=== PATIENT | female | born 1960 | race Caucasian/White ===

== ENCOUNTER 2024-09-08 04:28 | Day surgery (SDC) | payer OTHER ==
[2024-09-04 14:58] VITALS: BMI 36.4
[2024-09-08] MEDS ORDERED: DEXAMETHASONE SOD PHOSPHATE 4 MG/1 ML VIAL ONE (07:32)
[2024-09-08] MEDS ORDERED: LIDOCAINE HCL/PF 2% SDV 5ML VIAL ONE (07:32)
[2024-09-08] MEDS ORDERED: ONDANSETRON 4 MG/2 ML VIAL ONE ×2 (07:32→13:16)
[2024-09-08] MEDS ORDERED: KETOROLAC TROMETHAMINE 30 MG/1 ML VIAL ONE (07:32)
[2024-09-08] MEDS ORDERED: ROCURONIUM BROMIDE 50 MG/5 ML SYRINGE ONE (07:37)
[2024-09-08] MEDS ORDERED: MIDAZOLAM HCL 2 MG/2 ML SINGLE DOSE VIAL ONE (07:40)
[2024-09-08] MEDS ORDERED: PROPOFOL 40 ML ONE (07:41)
[2024-09-08] MEDS ORDERED: ACETAMINOPHEN INJECTION 100 ML ONE (08:05)
[2024-09-08] MEDS ORDERED: HEPARIN NA (PORCINE) 5,000 UNITS/ML 1ML VIAL ONE (08:15)
[2024-09-08] MEDS ORDERED: cefOXitin SODIUM 2 GM VIAL (RESTRICTED TO ID) IVPB ONE (08:15)
[2024-09-08] MEDS ORDERED: BUPIVACAINE HCL/PF 0.25% (2.5MG/ML) 10 ML VIAL ONE (08:15)
[2024-09-08] MEDS: cefOXitin SODIUM 2 GM VIAL (RESTRICTED TO ID) IVPB ONE (10:18)
[2024-09-08] MEDS: BUPIVACAINE HCL/PF 0.25% (2.5MG/ML) 10 ML VIAL IJ ONE (10:28)
[2024-09-08] MEDS ORDERED: NEOSTIGMINE METHYLSULFATE 0.5 MG/1 ML - 10 ML MDV ONE (10:45)
[2024-09-08] MEDS ORDERED: GLYCOPYRROLATE 0.2 MG/1 ML VIAL ONE (10:45)
[2024-09-08] MEDS ORDERED: oxyCODONE HCL 5 MG TABLET PO PRN (11:19)
[2024-09-08] MEDS ORDERED: PROMETHAZINE HCL 25 MG/1 ML VIAL IVPB PRN (11:19)
[2024-09-08] MEDS: ONDANSETRON 4 MG/2 ML VIAL IVPUSH PRN (13:22)
[2024-09-08] MEDS: ACETAMINOPHEN 1000 MG/100 ML BAG IVPB ONE (13:23)
[2024-09-08] MEDS: LACTATED RINGERS SOLUTION 1,000 ML IV SCH (13:47)
[2024-09-08 16:10] VITALS: RESP 16
[2024-09-08] MEDS ORDERED: oxyCODONE HCL 5 MG TABLET ONE (17:19)
[2024-09-08] MEDS: oxyCODONE HCL 5 MG TABLET PO PRN (17:20)
[2024-09-08 17:24] VITALS: BP 130/75; PULSE 82; TEMP 97.8
== END 2024-09-08 18:22 | disposition home or self-care (01) ==
LOC: JASU-SURG 04:28
PROVIDERS: ATTEND Surgery
PROC: 0FT44ZZ Resection of Gallbladder, Percutaneous Endoscopic Approach (ICD-10-PCS; principal; 2024-09-08 12:30)
PROC: 0DJ08ZZ Inspection of Upper Intestinal Tract, Via Natural or Artificial Opening Endoscopic (ICD-10-PCS; 2024-09-08 12:30)
DX: K80.20 Calculus of gallbladder without cholecystitis without obstruction (principal)
CPT/HCPCS: 82962; 86850; 86900; 86901; 88304-TC; 94760; J0131; J1644

== ENCOUNTER 2024-09-19 14:40 | Inpatient (IN) | payer OTHER ==
[2024-09-19] MEDS ORDERED: ACETAMINOPHEN INJECTION 100 ML ONE (15:29)
[2024-09-19] MEDS ORDERED: ONDANSETRON 4 MG/2 ML VIAL ONE ×2 (15:30→23:59)
[2024-09-19] MEDS ORDERED: FAMOTIDINE 20 MG/50 ML IVPB 20 MG/50 ML MG IVPB ONE (15:30)
[2024-09-19] MEDS: ONDANSETRON 4 MG/2 ML VIAL IVPUSH ONE (15:57)
[2024-09-19] MEDS: ACETAMINOPHEN 1000 MG/100 ML BAG IVPB ONE (15:57)
[2024-09-19 16:01] LABS: BASO % 0.7 % (0-2.0); EOS % 1.5 % (0-4.5); HEMATOCRIT 42.1 % (32.4-45.2); HEMOGLOBIN 13.3 GM/dL (10.7-15.3); LYMPH % 22.1 % (8-40); MCH 26.5 pg (25.7-33.7); MCHC 31.7 g/dl (32.0-36.0); MEAN CELL VOLUME 83.7 fl (80-96); MEAN PLT VOLUME 7.8 fl (7.5-11.1); MONO % 7.4 % (3.8-10.2); NEUT % 68.3 % (42.8-82.8); PLATELET COUNT 321 10^3/uL (134-434); RBC 5.03 M/mm3 (3.60-5.2); RDW 17.5 % (11.6-15.6); WHITE BLOOD COUNT 8.8 K/mm3 (4.0-10.0)
[2024-09-19 16:04] LABS: EPI CELLS 3 /uL (0-25.1); HYALINE CASTS 0 /uL (0-3.1); PH,URINE 5.5 (5.0-8.0); URINE APPEARANCE CLEAR; URINE BACTERIA 4 /uL (0-1359); URINE BILIRUBIN NEGATIVE (NEGATIVE); URINE COLOR YELLOW; URINE GLUCOSE (UA) NEGATIVE (NEGATIVE); URINE KETONE TRACE (NEGATIVE); URINE LEUK ESTERASE NEGATIVE (NEGATIVE); URINE NITRITE NEGATIVE (NEGATIVE); URINE PROTEIN NEGATIVE (NEGATIVE); URINE RBC 4 /uL (0-23.9); URINE UROBILINOGEN 0.2 mg/dL (0.2-1.0); URINE WBC 5 /uL (0-25.8)
[2024-09-19] MEDS: FAMOTIDINE 20 MG/50 ML IVPB 20 MG/50 ML MG IVPB ONE (16:08)
[2024-09-19 16:16] LABS: INR 1.07 (0.83-1.09); PROTHROMBIN TIME (PATIENT) 12.1 SEC (9.7-13.0)
[2024-09-19 16:18] LABS: ACTIVATED PTT 36.5 SECONDS (25.2-36.5)
[2024-09-19 16:23] LABS: POTASSIUM 4.7 mmol/L (3.5-5.1)
[2024-09-19 16:25] LABS: CALCIUM 9.3 mg/dL (8.5-10.1)
[2024-09-19 16:26] LABS: ALBUMIN 3.6 g/dl (3.4-5.0); BLOOD UREA NITROGEN 11.5 mg/dL (7-18)
[2024-09-19 16:29] LABS: CREATININE 0.6 mg/dL (0.55-1.3)
[2024-09-19 16:30] LABS: BILIRUBIN,TOTAL 0.5 mg/dL (0.2-1)
[2024-09-19 16:31] LABS: TOT PROT 7.4 g/dl (6.4-8.2)
[2024-09-19 16:52] LABS: MAGNESIUM 2.1 mg/dL (1.8-2.4)
[2024-09-19] MEDS ORDERED: PANTOPRAZOLE SODIUM 40 MG/100 ML BAG IVPB ONE (18:07)
[2024-09-19] MEDS ORDERED: morphine SULFATE 4 MG/ML VIAL ONE (18:07)
[2024-09-19] MEDS ORDERED: METOCLOPRAMIDE HCL INJECTION 10 MG/2 ML VIAL ONE (18:07)
[2024-09-19] MEDS: morphine CARPU-JECT 4 MG/1 ML DISP.SYRIN IVPUSH ONE (18:25)
[2024-09-19] MEDS: METOCLOPRAMIDE HCL INJECTION 10 MG/2 ML VIAL IVPB ONE (18:25)
[2024-09-19] MEDS: PANTOPRAZOLE SODIUM 40 MG VIAL IVPUSH ONE (18:26)
[2024-09-19] MEDS: TETRACAINE/BENZOCAINE/BUTAMBEN 20 GM SPR TP ONE (22:08)
[2024-09-19] MEDS: LIDOCAINE HCL 2% JELLY 10 ML CARTRIDGE PR ONE (22:09)
[2024-09-19] MEDS: IOHEXOL (OMNIPAQUE IV) 350 MG/ML - 100 ML BOTTLE PO ONE (23:38)
[2024-09-20] MEDS: ONDANSETRON 4 MG/2 ML VIAL IVPUSH ONE (00:18)
[2024-09-20] MEDS: LACTATED RINGERS SOLUTION 1,000 ML/1,000 ML INFUS.BAG IV SCH (00:18)
[2024-09-20] MEDS ORDERED: ONDANSETRON 4 MG/2 ML VIAL IVPUSH PRN (00:25)
[2024-09-20] MEDS: ACETAMINOPHEN 1000 MG/100 ML BAG IVPB PRN ×2 (01:25→21:04)
[2024-09-20] MEDS: INSULIN ASPART SLIDING SCALE (NOVOLOG) 1 VIAL SQ SCH (01:27)
[2024-09-20 02:12] VITALS: BMI 36.0
[2024-09-20] MEDS ORDERED: PATIENT'S OWN MEDICATION (NON-FORMULARY) (Omeprazole [Omeprazole] 20 MG Tablet.Dr) PO SCH (04:00)
[2024-09-20] MEDS: ONDANSETRON 4 MG/2 ML VIAL IVPUSH PRN (06:04)
[2024-09-20] MEDS ORDERED: hydrALAZINE HCL 20 MG/ML VIAL IVPUSH PRN (06:20)
[2024-09-20 09:44] LABS: BASO % 0.4 % (0-2.0); EOS % 0.8 % (0-4.5); HEMATOCRIT 39.4 % (32.4-45.2); HEMOGLOBIN 12.6 GM/dL (10.7-15.3); LYMPH % 17.7 % (8-40); MCH 26.8 pg (25.7-33.7); MCHC 31.9 g/dl (32.0-36.0); MEAN PLT VOLUME 7.9 fl (7.5-11.1); MONO % 6.5 % (3.8-10.2); NEUT % 74.6 % (42.8-82.8); PLATELET COUNT 288 10^3/uL (134-434); RBC 4.69 M/mm3 (3.60-5.2); RDW 17.1 % (11.6-15.6); WHITE BLOOD COUNT 8.2 K/mm3 (4.0-10.0)
[2024-09-20 09:59] LABS: POTASSIUM 3.6 mmol/L (3.5-5.1)
[2024-09-20 10:02] LABS: CALCIUM 8.6 mg/dL (8.5-10.1)
[2024-09-20 10:03] LABS: ALBUMIN 3.3 g/dl (3.4-5.0); BLOOD UREA NITROGEN 14.2 mg/dL (7-18)
[2024-09-20 10:06] LABS: PHOSPHOROUS 3.5 mg/dL (2.5-4.9)
[2024-09-20 10:07] LABS: BILIRUBIN,TOTAL 0.5 mg/dL (0.2-1); TOT PROT 6.6 g/dl (6.4-8.2)
[2024-09-20 10:08] LABS: CREATININE 0.5 mg/dL (0.55-1.3)
[2024-09-20] MEDS ORDERED: ENOXAPARIN NA (PORCINE) 40 MG/0.4 ML DISP.SYRIN SQ SCH (11:00)
[2024-09-20] MEDS: CARVEDILOL 25 MG TABLET (FP) PO SCH (11:08)
[2024-09-20] MEDS: GABAPENTIN 300 MG CAPSULE PO SCH (11:24)
[2024-09-20] MEDS ORDERED: amLODIPine BESYLATE 5 MG TABLET (FP) PO SCH (12:03)
[2024-09-20] MEDS: LOSARTAN POTASSIUM 50 MG TABLET PO SCH (12:12)
[2024-09-20] MEDS: ENOXAPARIN NA (PORCINE) 40 MG/0.4 ML DISP.SYRIN SQ SCH (12:13)
[2024-09-20] MEDS: amLODIPine BESYLATE 5 MG TABLET (FP) PO SCH (12:22)
[2024-09-20] MEDS: CYCLOBENZAPRINE HCL 10 MG TABLET (FP) PO ONE (15:09)
[2024-09-20] MEDS ORDERED: LORATADINE 10 MG PO SCH (15:14)
[2024-09-20] MEDS: DOCUSATE SODIUM 100 MG CAPSULE (FP) PO SCH (17:26)
[2024-09-20] MEDS: MONTELUKAST NA 10 MG TABLET PO SCH (21:04)
[2024-09-21] MEDS: ACETAMINOPHEN 1000 MG/100 ML BAG IVPB ONE (05:50)
[2024-09-21] MEDS: LORATADINE 10 MG TABLET PO SCH (09:49)
[2024-09-21 09:59] LABS: HEMATOCRIT 36.9 % (32.4-45.2); HEMOGLOBIN 12.1 GM/dL (10.7-15.3); MCHC 32.8 g/dl (32.0-36.0); MEAN CELL VOLUME 82.4 fl (80-96); MEAN PLT VOLUME 7.7 fl (7.5-11.1); PLATELET COUNT 277 10^3/uL (134-434); RBC 4.49 M/mm3 (3.60-5.2); RDW 17.3 % (11.6-15.6); WHITE BLOOD COUNT 6.6 K/mm3 (4.0-10.0)
[2024-09-21] MEDS ORDERED: amLODIPine BESYLATE 5 MG TABLET (FP) PO SCH (10:00)
[2024-09-21 10:15] LABS: POTASSIUM 3.8 mmol/L (3.5-5.1)
[2024-09-21 10:17] LABS: CALCIUM 9.2 mg/dL (8.5-10.1)
[2024-09-21 10:18] LABS: BLOOD UREA NITROGEN 7.8 mg/dL (7-18)
[2024-09-21 10:20] LABS: ALBUMIN 3.2 g/dl (3.4-5.0)
[2024-09-21 10:21] LABS: CREATININE 0.5 mg/dL (0.55-1.3)
[2024-09-21 10:23] LABS: TOT PROT 6.3 g/dl (6.4-8.2)
[2024-09-21 10:25] LABS: BILIRUBIN,TOTAL 0.5 mg/dL (0.2-1)
[2024-09-21] MEDS: IBUPROFEN 400 MG TABLET (FP) PO PRN (20:37)
[2024-09-22 02:56] VITALS: RESP 18
[2024-09-22 09:14] LABS: HEMATOCRIT 39.8 % (32.4-45.2); HEMOGLOBIN 12.9 GM/dL (10.7-15.3); MCH 26.8 pg (25.7-33.7); MCHC 32.4 g/dl (32.0-36.0); MEAN CELL VOLUME 82.7 fl (80-96); PLATELET COUNT 311 10^3/uL (134-434); RBC 4.82 M/mm3 (3.60-5.2); RDW 17.2 % (11.6-15.6); WHITE BLOOD COUNT 6.3 K/mm3 (4.0-10.0)
[2024-09-22 09:39] LABS: POTASSIUM 3.7 mmol/L (3.5-5.1)
[2024-09-22 09:45] LABS: CALCIUM 9.3 mg/dL (8.5-10.1)
[2024-09-22 09:46] LABS: ALBUMIN 3.5 g/dl (3.4-5.0); BLOOD UREA NITROGEN 10.3 mg/dL (7-18)
[2024-09-22 09:49] LABS: CREATININE 0.7 mg/dL (0.55-1.3)
[2024-09-22 09:51] LABS: BILIRUBIN,TOTAL 0.4 mg/dL (0.2-1); TOT PROT 6.8 g/dl (6.4-8.2)
[2024-09-22 14:18] VITALS: BP 138/81; PULSE 79; TEMP 98.1
== END 2024-09-22 15:51 | disposition home or self-care (01) | DRG 390 ==
LOC: JER 14:40 → JERBED 22:06 → J6S 09-20 00:53
PROVIDERS: ADMIT Internal Medicine; ATTEND Internal Medicine
DX: K56.600 Partial intestinal obstruction, unspecified as to cause (principal); I10 Essential (primary) hypertension; E11.9 Type 2 diabetes mellitus without complications; E78.5 Hyperlipidemia, unspecified; M79.7 Fibromyalgia; R19.7 Diarrhea, unspecified; R79.89 Other specified abnormal findings of blood chemistry; J98.4 Other disorders of lung; J45.909 Unspecified asthma, uncomplicated; Z98.84 Bariatric surgery status; Z86.718 Personal history of other venous thrombosis and embolism
CPT/HCPCS: 0241U-QW; 36415; 71045-TC-FY; 74019-TC-FY; 74177-TC; 80053; 81003; 82962; 83605; 83690; 83735; 84100; 84484; 85025; 85027; 85610; 85730; 86850; 86900; 86901; 87086; 93005; 93010; 99285-25; J0131; Q9967